=== PATIENT | female | born 1985 | race African-American/Black ===

== ENCOUNTER 2017-01-14 14:44 | Emergency (ER) ==
--- NOTE | 2017-01-14 15:41 | ED EKG INTERP ---
EKG Interpretation - EKG Time of EKG reading by physician:: 15:12 EKG Read and Signed by:: Wai Hu EKG Interpretation (*Must complete 3 of following elements*): Normal Rate: 72 Rhythm: NSR [place]: normal QRS: normal ND Interval: normal ST Wave: normal Attestation - Scribe Verification/Attestation Scribe:: Marin George Acting as Scribe for:: Wai Hu Scribe documention review:: This chart was documented by a scribe and accurately reflects the service the provider performed and the decisions made by the provider. Physician Attestation - Physician Attestation I, the provider, attest to the following statement:: Wai Hu Physician documentation Attestation:: This documentation recorded by the scribe accurately reflects the service I personally performed and the decisions made by me.
--- NOTE | 2017-01-14 15:48 | EKG Report ---
Test Performed on : 01/14/2017 3:02:40 PM Test Reason : EPIGASTRIC CHEST PAIN Blood Pressure : / mmHG Vent. Rate : 070 BPM Atrial Rate : 070 BPM P-R Int : 116 ms QRS Dur : 072 ms QT Int : 376 ms P-R-T Axes : 080 089 048 degrees QTc Int : 406 ms Normal sinus rhythm. Normal ECG No previous ECGs available Unconfirmed Result
--- NOTE | 2017-01-14 16:10 | PROVIDER DOCUMENTATION ---
HPI-Abdominal Pain/GI Problem - General Source: patient - History of Present Illness-ABD Nature of Presenting Problems: Patient is a 31 yo F that presents to the ER with epigastric pain worse with eating x 1 week. Patient reports eating baby powder for years she stopped a week ago and symptoms began Abdominal Pain Onset Location: reports: epigastric Pain Radiation: reports: no radiation Quality of Pain: reports: burning Severity in ED: reports: mild Onset/Duration: reports: gradual, 1 week ago Timing: reports: still present, constant Activities at Onset: reports: none Modifying Factors: worse with: eating Associated Symptoms: reports: chest pain, nausea. denies: back/neck pain, fever /chills, genitourinary problems, vomiting Similar Symptoms Previously?: No Recently seen or treated by another doctor?: No <Marin George - Last Filed: 01/14/17 16:13> <Jean Mcnulty - Last Filed: 01/14/17 17:28> - General Chief Complaint: Epigastric Pain Stated Complaint: CP Time Seen by Provider: 01/14/17 15:44 Allergies/Adverse Reactions: Patient Allergies Allergy/AdvReac Type Severity Reaction Status Date / Time No Known Allergies Allergy Verified 01/14/17 15:46 Home Medications: Home Medication List Medication Instructions Recorded Confirmed Last Taken Type Esomeprazole [Nexium] 40 mg PO DAILY #30 capsule 01/14/17 Unknown Rx Multivitamin with Iron [Daily 1 each PO DAILY #30 tablet 01/14/17 Unknown Rx Vitamin + Iron] Review of Systems - Adult - REVIEW OF SYSTEMS - ADULT Constitutional: denies: chills, fever Eyes: reports: no symptoms reported Ears, Nose, Mouth & Throat: denies: ear discharge, ear pain, sinus problem, throat pain, throat swelling Cardiovascular: reports: chest pain. denies: palpitations, syncope Respiratory: denies: shortness of breath Gastrointestinal: reports: frequent heartburn. denies: abdominal pain, diarrhea , nausea, vomiting Genitourinary: reports: no symptoms reported Musculoskeletal: reports: no symptoms reported Integumentary: reports: no symptoms reported Neurological: reports: no symptoms reported Psychiatric: reports: no symptoms reported Endocrine: reports: no symptoms reported Hematologic/Lymphatic: reports: no symptoms reported Allergic/Immunologic: reports: no symptoms reported All Other Systems: Reviewed and Negative <Marin George - Last Filed: 01/14/17 16:13> Past History - Adult - PAST MEDICAL HISTORY-ADULT Review of Records: reports: Old Records Reviewed, Nursing Assessment Review, Medications Reviewed - PRIOR SURGERIES/PROCEDURES Surgical/Procedure History: reports: none - IMMUNIZATION STATUS Childhood Immunizations: See Nurse Assessment Flu Vaccine: See Nurse Assessment - FAMILY HISTORY Family History: reviewed, not pertinent - SOCIAL HISTORY Smoking: cigar, less than 1 pack/day Substance Use: marijuana Living Situation: family <Marin George - Last Filed: 01/14/17 16:13> Physical Exam-General - PHYSICAL EXAM-ADULT Initial Vital Signs Reviewed: Yes - CONSTITUTIONAL General Appearance: alert, no apparent distress - EYES Eyes: PERRL/EOMI, pink conjunctivae - HEAD, EARS, NOSE, MOUTH & THROAT HENMT: normocephalic/atraumatic, moist mucous membranes, normal ENT inspection - NECK Neck: full range of motion, normal inspection. negative: lymphadenopathy - RESPIRATORY Respiratory: lungs clear, normal breath sounds, no respiratory distress, no accessory muscle use - CARDIOVASCULAR Cardiovascular: regular rate, rhythm, no edema, no murmur - GASTROINTESTINAL (ABDOMEN) Abdominal Exam: normal bowel sounds, non tender, soft, no organomegaly, no pulsatile mass - MUSCULOSKELETAL Back Exam: no CVA tenderness, no vertebral tenderness Extremity: normal range of motion, normal inspection, no pedal edema - SKIN Integumentary: normal color, warm/dry - NEUROLOGIC Neurologic: grossly normal, no motor/sensory deficits - PSYCHIATRIC Psych/Mental Status: normal mood/affect, normal thought content, normal thought process, oriented x 3 <Marin George - Last Filed: 01/14/17 16:13> Progress - PLAN OF CARE/RESULTS Progress/Plan/Lab Results: Laboratory Tests 01/14/17 01/14/17 01/14/17 15:09 15:09 16:28 WBC 13.13 H RBC 4.98 Hgb 11.5 L Hct 35.9 L MCV 72.1 L MCH 23.1 L MCHC 32.0 L RDW Std Deviation 18.3 H Plt Count 298 MPV 11.2 H Immature Gran % (Auto) 0.2 Neut % (Auto) 76.8 H Lymph % (Auto) 10.9 L Sac % (Auto) 10.4 H Eos % (Auto) 1.4 Baso % (Auto) 0.3 Immature Gran # (Auto) 0.03 Neut # (Auto) 10.08 H Lymph # (Auto) 1.43 Sac # (Auto) 1.37 H Eos # (Auto) 0.18 Baso # (Auto) 0.04 Sodium 139 Potassium 3.6 Chloride 104 Carbon Dioxide 22 L Anion Gap 13 BUN 9 Creatinine 0.9 Estimated GFR/1.73 m2 > 60 BUN/Creatinine Ratio 10 Glucose 90 Calculated Osmolality 276 Calcium 9.6 Total Bilirubin 0.32 AST 30 ALT 16 Alkaline Phosphatase 72 Total Protein 7.9 Albumin 4.3 Globulin 3.6 Albumin/Globulin Ratio 1.2 Urine Source CLEAN CATCH Urine Color YELLOW Urine Turbidity CLEAR Urine pH 5.5 Ur Specific [place] 1.018 Urine Protein NEGATIVE Ur Glucose (Stick) NEGATIVE Ur Ketones (Stick) NEGATIVE Urine Blood MODERATE A Urine Nitrite NEGATIVE Urine Bilirubin NEGATIVE Urobilinogen Dipstick NORMAL Urine Leukocytes NEGATIVE Urine WBC (Auto) <10 Urine RBC (Auto) <10 U Epithel Cells (Auto) <10 Urine Bacteria (Auto) NEGATIVE Vital Signs Temp Pulse Resp BP Pulse Ox 01/14/17 14:56 97.8 F 75 20 153/92 100 No Known Allergies Allergy (Verified 01/14/17 15:46) No Home Medications 01/14/17 I&O 01/13/17 01/14/17 01/15/17 06:59 06:59 06:59 Output Total 30 Balance -30 Laboratory 01/14/17 01/14/17 01/14/17 16:28 15:09 15:09 WBC 13.13 H RBC 4.98 Hgb 11.5 L Hct 35.9 L MCV 72.1 L MCH 23.1 L MCHC 32.0 L RDW Std Deviation 18.3 H Plt Count 298 MPV 11.2 H Immature Gran % (Auto) 0.2 Neut % (Auto) 76.8 H Lymph % (Auto) 10.9 L Sac % (Auto) 10.4 H Eos % (Auto) 1.4 Baso % (Auto) 0.3 Immature Gran # (Auto) 0.03 Neut # (Auto) 10.08 H Lymph # (Auto) 1.43 Sac # (Auto) 1.37 H Eos # (Auto) 0.18 Baso # (Auto) 0.04 Sodium 139 Potassium 3.6 Chloride 104 Carbon Dioxide 22 L Anion Gap 13 BUN 9 Creatinine 0.9 Estimated GFR/1.73 m2 > 60 BUN/Creatinine Ratio 10 Glucose 90 Calculated Osmolality 276 Calcium 9.6 Total Bilirubin 0.32 AST 30 ALT 16 Alkaline Phosphatase 72 Total Protein 7.9 Albumin 4.3 Globulin 3.6 Albumin/Globulin Ratio 1.2 Urine Source CLEAN CATCH Urine Color YELLOW Urine Turbidity CLEAR Urine pH 5.5 Ur Specific [place] 1.018 Urine Protein NEGATIVE Ur Glucose (Stick) NEGATIVE Ur Ketones (Stick) NEGATIVE Urine Blood MODERATE A Urine Nitrite NEGATIVE Urine Bilirubin NEGATIVE Urobilinogen Dipstick NORMAL Urine Leukocytes NEGATIVE Urine WBC (Auto) <10 Urine RBC (Auto) <10 U Epithel Cells (Auto) <10 Urine Bacteria (Auto) NEGATIVE Vital Signs Temp Pulse Resp BP Pulse Ox 01/14/17 14:56 97.8 F 75 20 153/92 100 No Known Allergies Allergy (Verified 01/14/17 15:46) No Home Medications 01/14/17 I&O 01/13/17 01/14/17 01/15/17 06:59 06:59 06:59 Output Total 30 Balance -30 Laboratory 01/14/17 01/14/17 01/14/17 16:28 15:09 15:09 WBC 13.13 H RBC 4.98 Hgb 11.5 L Hct 35.9 L MCV 72.1 L MCH 23.1 L MCHC 32.0 L RDW Std Deviation 18.3 H Plt Count 298 MPV 11.2 H Immature Gran % (Auto) 0.2 Neut % (Auto) 76.8 H Lymph % (Auto) 10.9 L Sac % (Auto) 10.4 H Eos % (Auto) 1.4 Baso % (Auto) 0.3 Immature Gran # (Auto) 0.03 Neut # (Auto) 10.08 H Lymph # (Auto) 1.43 Sac # (Auto) 1.37 H Eos # (Auto) 0.18 Baso # (Auto) 0.04 Sodium 139 Potassium 3.6 Chloride 104 Carbon Dioxide 22 L Anion Gap 13 BUN 9 Creatinine 0.9 Estimated GFR/1.73 m2 > 60 BUN/Creatinine Ratio 10 Glucose 90 Calculated Osmolality 276 Calcium 9.6 Total Bilirubin 0.32 AST 30 ALT 16 Alkaline Phosphatase 72 Total Protein 7.9 Albumin 4.3 Globulin 3.6 Albumin/Globulin Ratio 1.2 Urine Source CLEAN CATCH Urine Color YELLOW Urine Turbidity CLEAR Urine pH 5.5 Ur Specific [place] 1.018 Urine Protein NEGATIVE Ur Glucose (Stick) NEGATIVE Ur Ketones (Stick) NEGATIVE Urine Blood MODERATE A Urine Nitrite NEGATIVE Urine Bilirubin NEGATIVE Urobilinogen Dipstick NORMAL Urine Leukocytes NEGATIVE Urine WBC (Auto) <10 Urine RBC (Auto) <10 U Epithel Cells (Auto) <10 Urine Bacteria (Auto) NEGATIVE Pt has microcytic, hypochromic anemia. Given her cravings for baby powder I believe this is Pica from iron deficiency anemia. Will start pt on Iron supplements. She does have a WBC but I do not see any source of infection. Will give a single dose of Rocephin for potential sources however. Will place on Nexium and have her f/u c a PCP for CBC recheck and a GI provider for possible EGD. She voiced understanding and is in agreement c this plan. <Jean Mcnulty - Last Filed: 01/14/17 17:28> Departure <Marin George - Last Filed: 01/14/17 16:13> - Departure Time of Disposition Order: 17:26 Certified Medical Emergency: Emergent <Jean Mcnulty - Last Filed: 01/14/17 17:28> - Departure DIAGNOSIS: Pica in adults Iron deficiency anemia Qualifiers: Iron deficiency anemia type: unspecified iron deficiency Qualified Code(s): D50.9 - Iron deficiency anemia, unspecified GERD (gastroesophageal reflux disease) Qualifiers: Esophagitis presence: esophagitis presence not specified Qualified Code(s): K21.9 - Gastro-esophageal reflux disease without esophagitis Disposition: HOME 01 Condition: Good Additional Instructions: Take medication as prescribed. Follow up with a primary care provider and GI physician. Return to the ER for any new or worsening symptoms. ED Follow Up Instructions: You have been treated by a care provider in the Emergency Department. These instructions are being provided to you so you can have an understanding of how to care for yourself upon discharge. Upon discharge from the Emergency Department, you are responsible for making arrangements for follow-up care by a physician of your choice. Take all prescribed medications as directed. Return to the Emergency Department immediately for any new or worsening symptoms. You may call the Physician Referral phone number at [phone] to obtain a list of Physicians who are taking new patients. Prescriptions: Multivitamin with Iron [Daily Vitamin + Iron] 1 each PO DAILY #30 tablet Esomeprazole [Nexium] 40 mg PO DAILY #30 capsule Referrals: None,PCP [Primary Care Provider] - Luh Boothe MD [STAFF PHYSICIAN] - Attestation - Scribe Verification/Attestation Scribe:: Marin George Acting as Scribe for:: Jean Mcnulty Scribe documention review:: This chart was documented by a scribe and accurately reflects the service the provider performed and the decisions made by the provider. - Physician/ JORDYN Attestation Patient care was provided by Advanced Practice Provider:: Yes Advanced Practice Provider:: Jean Mcnulty Advanced Practice Provider documentation review:: The Mid-level provider documentation, treatment plan and medical decision making was reviewed by the physician who agrees with all treatment and medical decision making by the MLP. <Marin George - Last Filed: 01/14/17 16:13> - Physician/ JORDYN Attestation Patient care was provided by Advanced Practice Provider:: Yes Advanced Practice Provider:: Jean Mcnulty Advanced Practice Provider documentation review:: The Mid-level provider documentation, treatment plan and medical decision making was reviewed by the physician who agrees with all treatment and medical decision making by the MLP. <Jean Mcnulty - Last Filed: 01/14/17 17:28> Physician Attestation - Physician Attestation I, the provider, attest to the following statement:: Jean Mcnulty Physician documentation Attestation:: This documentation recorded by the scribe accurately reflects the service I personally performed and the decisions made by me. <Marin George - Last Filed: 01/14/17 16:13>
[2017-01-14 16:31] LABS: AGAP 13; ALBUMIN 4.3 g/dL (3.5-5.0); ALKALINE PHOSPHATASE 72 U/L (32-104); BUN 9 mg/dL (8-22); CALCIUM 9.6 mg/dL (8.8-10.2); CHLORIDE 104 mmol/L (98-107); COSMO 276; GOT 30 U/L (10-30); GPT 16 U/L (10-36); POTASSIUM 3.6 mmol/L (3.5-5.1); SODIUM 139 mmol/L (136-145); TCO2 22 mmol/L (25-35); TOTAL BILIRUBIN 0.32 mg/dL (0.20-1.00); TOTAL PROTEIN 7.9 g/dL (6.3-8.3)
[2017-01-14 16:35] LABS: BASO% 0.3 % (0.0-0.8); EOS# 0.18 X1000 (0.0-0.7); EOS% 1.4 % (0.0-10.0); HEMATOCRIT 35.9 % (37.0-47.0); HEMOGLOBIN 11.5 g/dL (12.0-16.0); IMM GRAN# 0.03 X1000 (0.0-0.04); IMM GRAN% 0.2 % (0.0-0.5); LYMPH# 1.43 X1000 (1.2-3.4); LYMPH% 10.9 % (20.5-51.1); MANUAL DIFF NEEDED? NO; MCH 23.1 PG (27-31); MCV 72.1 FL (81-99); MONO# 1.37 X1000 (0.11-0.59); MONO% 10.4 % (1.7-9.3); MPV 11.2 FL (7.4-10.4); NEUT% 76.8 % (42.2-75.2); PLT 298 X1000 (130-400); RBC 4.98 XMIL (4.2-5.4)
[2017-01-14 16:36] LABS: URINE CULTURE NEEDED? NO; URINE MICRO REVIEW NEEDED? NO; URINE SOURCE CLEAN CATCH
[2017-01-14 16:41] LABS: BILIRUBIN URINE NEGATIVE (NEGATIVE); BLOOD URINE MODERATE (NEGATIVE); COLOR YELLOW; GLUCOSE URINE NEGATIVE (NEGATIVE); LEUKOCYTES URINE NEGATIVE (NEGATIVE); NITRITE URINE NEGATIVE (NEGATIVE); PH URINE 5.5; PROTEIN URINE NEGATIVE (NEGATIVE); SP GRAVITY URINE 1.018; TURBIDITY URINE CLEAR (CLEAR); UROBILINOGEN URINE NORMAL (NORMAL)
[2017-01-14 16:42] LABS: UR EPITHELIAL CELLS <10 /HPF (<10); URINE BACTERIA NEGATIVE /HPF; URINE RBC <10 /HPF (<10); URINE WBC <10 /HPF (<10)
[2017-01-14] MEDS ORDERED: G.I. COCKTAIL PO ONE (17:22)
[2017-01-14] MEDS ORDERED: XYLOCAINE-MPF 1% INJ ONE (17:22)
[2017-01-14] MEDS ORDERED: ROCEPHIN IM ONE (17:22)
[2017-01-14 18:13] VITALS: BP 175/100
--- NOTE | 2017-01-14 20:46 | Diag Imaging Result Document ---
PROCEDURE NAME: CHEST-2 VIEWS - 01/14/2017 PA AND LATERAL RADIOGRAPH OF THE CHEST: COMPARISON: None available. FINDINGS: The lungs are grossly clear. There is no discrete pleural fluid collection or evidence of pneumothorax. The cardiomediastinal silhouette and upper airway are grossly unremarkable. IMPRESSION: No evidence of acute chest pathology.
== END 2017-01-14 18:11 | disposition home or self-care (01) ==
LOC: ED 14:44
DX: K21.9 Gastro-esophageal reflux disease without esophagitis (principal); D50.9 Iron deficiency anemia, unspecified; F50.89 Other specified eating disorder; R10.13 Epigastric pain; R11.0 Nausea; R07.9 Chest pain, unspecified; R12 Heartburn; F17.210 Nicotine dependence, cigarettes, uncomplicated; Z71.6 Tobacco abuse counseling
CPT/HCPCS: 71020; 80053; 81001; 85025; 93005; J0696